=== PATIENT | male | born 1970 | race Caucasian/White ===

== ENCOUNTER 2017-03-20 08:35 | Emergency (ER) | payer SELFPAY ==
[2017-03-20] MEDS ORDERED: KETOROLAC TROMETHAMINE INJ 30 MG/ML VIAL IM ONE (08:50)
--- NOTE | 2017-03-20 08:53 | ED.PDOC ---
History of Present Illness - General Chief Complaint: General Stated Complaint: L knee pain Time Seen by Provider: 03/20/17 08:48 Source: patient Exam Limitations: no limitations - History of Present Illness Initial Comments: Patient is a 46 yo male with hx of gout that presents with three days of increasing left knee pain. He has had gout attacks in the right knee and right great toe but never on the left side. The pain is medial and spreads throughout the joint. Worse with movement, better with rest. Throbbing in nature. No recent trauma to the area. He says what works best is medrol dose packs. No fevers. No other complaints. Timing/Duration: other - 3 days Severity: moderate Improving Factors: rest Worsening Factors: movement Associated Symptoms: denies symptoms Allergies/Adverse Reactions: Allergies NO KNOWN ALLERGY Allergy (Verified 03/20/17 08:47) Home Medications: Ambulatory Orders Atenolol 100 mg PO DAILY 03/20/17 Colchicine 0.6 mg PO BIDFD #2 cap 03/20/17 Omeprazole Magnesium [Prilosec Otc] 40 mg PO DAILY 03/20/17 Prednisone [Deltasone] 20 mg PO DAILY #5 tab 03/20/17 Review of Systems - Review of Systems Constitutional: States: no symptoms reported EENTM: States: no symptoms reported Respiratory: States: no symptoms reported Cardiology: States: no symptoms reported Gastrointestinal/Abdominal: States: no symptoms reported Genitourinary: States: no symptoms reported Musculoskeletal: States: see HPI Skin: States: no symptoms reported Neurological: States: no symptoms reported Endocrine: States: no symptoms reported Hematologic/Lymphatic: States: no symptoms reported Past Medical History (General) - Patient Medical History Hx Stroke: No Hx Congestive Heart Failure: No Hx Hypertension: Yes Hx Diabetes: No Hx Gastroesophageal Reflux: Yes Hx MRSA: No - Vaccination History Hx Influenza Vaccination: No Hx Pneumococcal Vaccination: No - Social History Hx Tobacco Use: Yes - Quit 2009 - had been a social smoker Family Medical History - Family History Father Family History: No Known Living Status: Still Living Physical Exam - Physical Exam General Appearance: Alert Respiratory: lungs clear Cardiovascular/Chest: normal peripheral pulses, regular rate, rhythm Gastrointestinal/Abdominal: normal bowel sounds, non tender, soft Extremity: other - left knee is TTP. Unable to test AROM or PROM because of extremed pain with movement. Progress - Progress Progress: 03/20/17 08:54 Toradol 30 mg IM x one. 03/20/17 09:55 Uric acid 8.1 Patient discharged with RX for colchicine and medrol dose pack. Departure - Departure Clinical Impression: Gout attack Disposition: Discharge to Home or Self Care Condition: Good Departure Forms: ED Discharge - Pt. Copy, Patient Portal Self Enrollment Diet: other - as per your primary care provider Activity: increase activity as tolerated Referrals: PEPPER ASHLEY [Primary Care Provider] - 1-2 Weeks Prescriptions: Colchicine 0.6 mg PO BIDFD #2 cap Prednisone [Deltasone] 20 mg PO DAILY #5 tab Home Medications: Ambulatory Orders Atenolol 100 mg PO DAILY 03/20/17 Colchicine 0.6 mg PO BIDFD #2 cap 03/20/17 Omeprazole Magnesium [Prilosec Otc] 40 mg PO DAILY 03/20/17 Prednisone [Deltasone] 20 mg PO DAILY #5 tab 03/20/17
[2017-03-20 09:16] VITALS: TEMP 98.7
[2017-03-20 10:40] VITALS: BP 172/96; O2SAT 98
== END 2017-03-20 10:35 | disposition home or self-care (01) ==
LOC: ER 08:35
DX: M10.9 Gout, unspecified (principal); I10 Essential (primary) hypertension; K21.9 Gastro-esophageal reflux disease without esophagitis; Z87.891 Personal history of nicotine dependence; Z79.899 Other long term (current) drug therapy